=== PATIENT | female | born 1965 ===

== ENCOUNTER 2020-11-19 06:45 | Day surgery (SDC) | payer OTHER ==
[~2020-11-19 06:45] MED LIST: OMEGA 3 1,0001 EACH PO; VITAMIN D PO; VITAMIN E400 UNI2 PO
== END 2020-11-19 17:26 | disposition home or self-care (01) ==
LOC: CIR.AMB 06:45
PROVIDERS: ATTEND Obstetrics & Gynecology
DX: N84.0 Polyp of corpus uteri (principal); Z20.822 Contact with and (suspected) exposure to COVID-19

== ENCOUNTER 2023-08-18 13:24 | Outpatient (CLI) | payer OTHER | END 2023-08-18 13:38 | disposition home or self-care (01) | LOC: SONOGRAMA 13:24 | PROVIDERS: ATTEND Obstetrics & Gynecology | DX: R31.21 Asymptomatic microscopic hematuria (principal); Z88.0 Allergy status to penicillin; Z88.6 Allergy status to analgesic agent ==